=== PATIENT | female | born 1965 | race Caucasian/White ===

== ENCOUNTER 2018-12-04 08:05 | Outpatient (CLI) | payer BC ==
--- NOTE | 2018-12-04 09:55 | MMO ---
Bilateral MAMMO Bilat Screen [id number]. CLINICAL HISTORY: Patient is 53 years old and is seen for screening. The patient has the following family history of breast cancer: maternal aunt, [place]. The patient has no personal history of cancer. VIEWS: The views performed were: bilateral craniocaudal with tomosynthesis and bilateral mediolateral oblique with tomosynthesis. FILMS COMPARED: The present examination has been compared to prior imaging studies performed at [facility] on 12/06/2009, 12/08/2010, 03/23/2015 and 01/08/2017. This study has been interpreted with the assistance of computer-aided detection. MAMMOGRAM FINDINGS: There are scattered fibroglandular densities. There are no suspicious masses, suspicious calcifications, or new areas of architectural distortion. IMPRESSION: THERE IS NO MAMMOGRAPHIC EVIDENCE OF MALIGNANCY. A ROUTINE FOLLOW-UP MAMMOGRAM IN 1 YEAR IS RECOMMENDED. THE RESULTS OF THIS EXAM WERE SENT TO THE PATIENT. ACR BI-RADS Category 1 - Negative MAMMOGRAPHY NOTE: 1. A negative mammogram report should not delay a biopsy if a dominant of clinically suspicious mass is present. 2. Approximately 10% to 15% of breast cancers are not detected by mammography. 3. Adenosis and dense breasts may obscure an underlying neoplasm. Reported by: SAM KISER MD Electonically Signed: [id number]
== END 2018-12-04 08:06 | disposition home or self-care (01) ==
LOC: BICMAMMO 08:05
PROVIDERS: ATTEND Family Medicine
DX: Z12.31 Encounter for screening mammogram for malignant neoplasm of breast (principal); Z80.3 Family history of malignant neoplasm of breast
CPT/HCPCS: 77063; 77067

== ENCOUNTER 2020-10-04 07:02 | Day surgery (SDC) | payer BC ==
[2020-09-30 12:59] VITALS: BMI 26.9
[~2020-10-04 07:02] MED LIST: EPINEPHrine 0.3 MG in Ophthalmic Irrigation Solution 500 ML IRR SCH
[2020-10-04] MEDS ORDERED: Cyclopentolate W/ Phenylephrin 40 DROP/2 ML BOT ONE (07:23)
[2020-10-04] MEDS ORDERED: Phenylephrine 2.5% Ophth Soln 5 ML BOT ONE (07:24)
[2020-10-04] MEDS ORDERED: Fentanyl 100 MCG/2 ML VIAL ONE (08:42)
[2020-10-04] MEDS ORDERED: Midazolam HCl 2 mg/2 ml Vial ONE (08:42)
[2020-10-04] MEDS ORDERED: PROPOFOL 200 MG/20 ML VIAL ONE (08:45)
[2020-10-04] MEDS ORDERED: Indocyanine Green 25 MG/10 ML VIAL ONE (08:45)
[2020-10-04] MEDS ORDERED: Bupivacaine PF 0.75% SDV 10 ML ONE (08:45)
[2020-10-04] MEDS ORDERED: Triamcinolone 40 MG/ML VIAL ONE (08:45)
[2020-10-04] MEDS ORDERED: CEFAZOLIN 1 GM VIAL ONE (08:45)
[2020-10-04] MEDS ORDERED: Lidocaine 4% PF 5 ML AMP ONE (08:45)
[2020-10-04] MEDS ORDERED: Lidocaine 1% PF 5 ML VIAL ONE (08:45)
[2020-10-04] MEDS ORDERED: Maxitrol 0.1% Opth Oint 3.5 GM TUBE ONE (08:45)
== END 2020-10-04 10:00 | disposition home or self-care (01) ==
LOC: SDC 07:02
PROVIDERS: ATTEND Family Medicine
PROC: 08T53ZZ Resection of Left Vitreous, Percutaneous Approach (ICD-10-PCS; principal; 2020-10-04)
PROC: 08NF3ZZ Release Left Retina, Percutaneous Approach (ICD-10-PCS; principal; 2020-10-04)
DX: H35.342 Macular cyst, hole, or pseudohole, left eye (principal); I10 Essential (primary) hypertension; G43.909 Migraine, unspecified, not intractable, without status migrainosus; R06.83 Snoring; Z87.891 Personal history of nicotine dependence; Z79.899 Other long term (current) drug therapy
CPT/HCPCS: 67025; J0171; J0690; J2250; J2704; J3010; J3301; J3490

== ENCOUNTER 2021-03-28 11:52 | Outpatient (CLI) | payer BC | END 2021-03-28 11:53 | disposition home or self-care (01) | LOC: BICMAMMO 11:52 | PROVIDERS: ATTEND Family Medicine | DX: Z12.31 Encounter for screening mammogram for malignant neoplasm of breast (principal); Z80.3 Family history of malignant neoplasm of breast | CPT/HCPCS: 77063; 77067 ==

== ENCOUNTER 2023-05-09 13:27 | Outpatient (CLI) | payer BC | END 2023-05-09 13:28 | disposition home or self-care (01) | LOC: BICMAMMO 13:27 | PROVIDERS: ATTEND Family Medicine | DX: Z12.31 Encounter for screening mammogram for malignant neoplasm of breast (principal); N63.10 Unspecified lump in the right breast, unspecified quadrant; N64.89 Other specified disorders of breast; Z80.3 Family history of malignant neoplasm of breast | CPT/HCPCS: 77063; 77067 ==

== ENCOUNTER 2023-05-17 14:18 | Outpatient (CLI) | payer BC | END 2023-05-17 14:19 | disposition home or self-care (01) | LOC: BICMAMMO 14:18 | PROVIDERS: ATTEND Family Medicine | DX: N63.10 Unspecified lump in the right breast, unspecified quadrant (principal); N60.01 Solitary cyst of right breast | CPT/HCPCS: G0279 ==